=== PATIENT | male | born 1960 | race Caucasian/White ===

== ENCOUNTER 2019-09-08 21:54 | Emergency (ER) | payer OTHER ==
[~2019-09-08 21:54] MED LIST: Iopamidol-370 76% 500 ML 1 ML ONE
[2019-09-08] MEDS ORDERED: Metoclopramide HCl 10 MG/2 ML VIAL ONE (22:44)
[2019-09-08] MEDS ORDERED: Ketorolac Tromethamine 30 MG/ML VIAL ONE (22:44)
[2019-09-08] MEDS ORDERED: diphenhydrAMINE 50 MG/ML VIAL ONE (22:44)
[2019-09-08 22:47] LABS: #Eosinphils 0.3 thou/uL (0.0-0.7); #Lymphocytes 1.4 thou/uL (1.20-3.40); #Monocytes 0.8 thou/uL (0.11-0.59); %Basophils 0.8 % (0.0-1.0); %Eosinophils 5.2 % (0.0-10.0); %Lymphocytes 24.8 % (21.0-51.0); %Monocytes 14.2 % (0.0-10.0); %Neutrophils 55.1 % (42.0-75.0); Hemoglobin 15.3 g/dL (14.0-18.0); Mean Corpuscular HGB CONC 33.1 g/dL (32.0-36.0); Mean Corpuscular Hemoglobin 31.4 pg (27.0-31.0); Mean Corpuscular Volume 94.7 fL (78.0-98.0); Mean Platelet Volume 8.9 fL (7.4-10.4); Platelet Count 169 thou/uL (130-400); Red Blood Cell (RBC) Count 4.86 mill/uL (4.70-6.10); White Blood Cell (WBC) Count 5.4 thou/uL (4.8-10.8)
[2019-09-08 23:07] LABS: ALT (SGPT) 29 U/L (8-55); AST (SGOT) 25 U/L (5-34); Albumin 4.4 g/dL (3.5-5.0); Alkaline Phosphatase 88 U/L (40-110); Anion Gap 14 mmol/L (10-20); BUN (Urea Nitrogen) 15 mg/dL (8.4-25.7); Bilirubin, Total 0.9 mg/dL (0.2-1.2); CK (CPK) 81 U/L (30-200); Calc. Creatinine Clearance 0 mL/min (70-130); Calcium 9.1 mg/dL (7.8-10.44); Carbon Dioxide 27 mmol/L (22-29); Chloride 102 mmol/L (98-107); Estimated GFR-MDRD 79; Glucose 90 mg/dL (70-105); Lipase 15 U/L (8-78); Potassium 4.3 mmol/L (3.5-5.1); Protein, Total 7.4 g/dL (6.0-8.3); Sodium 139 mmol/L (136-145)
--- NOTE | 2019-09-08 23:09 | RAD ---
XR Chest 1 View Portable HISTORY: Chest pain COMPARISON: None FINDINGS: The heart size is normal. The lungs are well expanded without focal areas of consolidation, pneumothorax or pleural effusions. IMPRESSION: No radiographic evidence of acute cardiopulmonary process.
--- NOTE | 2019-09-08 23:44 | CT ---
CT PULMONARY ANGIOGRAM WITH IV CONTRAST AND 3-D POSTPROCESSING: HISTORY:Headache, nausea, shortness of breath, chest congestion FINDINGS: There is good contrast opacification of the pulmonary arterial vasculature without filling defects to suggest pulmonary embolism. The thoracic aorta is well opacified without aneurysm or dissection. No pleural or pericardial effusions are seen. Hilar lymphadenopathy is seen, measuring 17 mm on the r ight and 13 mm in the left. A 1 cm subcarinal lymph node is seen. Other prominent but subcentimeter mediastinal lymph nodes are present. No pneumothoraces, focal areas of consolidation or lung masses a re noted. There are small patchy areas of tree-in-bud nodules in the lower lobes. A 6 mm right perifissural nod ule and a 6 mm left perifissural nodule are seen. There is a 9 mm groundglass nodule in the right lower lobe and a 5 mm solid nodule in the left lower lobe. There are degenerative changes in the spine. Upper abdominal tomograms demonstrate no significant abnormalities.. IMPRESSION: No CT evidence of pulmonary embolism. Tree-in-bud opacities are suggestive of acute infection. Hilar lymph node adenopathy may be evaluated with bronchoscopy. Indeterminate nodules in the lower lobes should be monitored with follow-up CT scan in 3 months.
--- NOTE | 2019-09-20 16:11 | EKG ---
Test Reason : Blood Pressure : / mmHG Vent. Rate : 091 BPM Atrial Rate : 091 BPM P-R Int : 172 ms QRS Dur : 076 ms QT Int : 360 ms P-R-T Axes : 069 063 066 degrees QTc Int : 442 ms Normal sinus rhythm Normal ECG Confirmed by NICHOLAS SALGADO ([id number]), online editor NIXON WALLACE ([id number]) on 09/20/2019 4:11:02 PM Referred By: Confirmed By:NICHOLAS SALGADO
== END 2019-09-09 00:45 ==
LOC: ERS 21:54
DX: J18.9 Pneumonia, unspecified organism (principal); Z20.828 Contact with and (suspected) exposure to other viral communicable diseases
CPT/HCPCS: 36415; 71045; 71275; 80053; 82550; 83690; 84484; 85025; 85379; 93005; 96361; 96374; 96375; J1200; J1885; J2765; Q9967